=== PATIENT | female | born 1965 | race Caucasian/White ===

== ENCOUNTER 2020-04-22 03:03 | Emergency (ER) | payer MEDICARE, BC, SELFPAY ==
[2020-04-22 04:15] VITALS: BP 134/89; PULSE 12; RESP 19; TEMP 36.9; O2SAT 98; BMI 26.5
[2020-04-22 04:42] LABS: Glucose Urine UA NEG (NEG); Leukocyte Esterase Urine NEG (NEG); Nitrite Urine NEG (NEG); Specific Gravity - Urine >= 1.030 (1.005-1.025); Urine Blood NEG (NEG); Urine Ketones NEG (NEG); Urine Protein NEG (NEG-TRACE)
[2020-04-22 04:43] LABS: Appearance Urine CLEAR; Color Urine YELLOW
--- NOTE | 2020-04-22 04:53 | ED.ANXIETY ---
HPI - Anxiety General Chief Complaint: Anxiety Stated Complaint: CRISIS Time Seen by Provider: 04/22/20 04:30 Source: patient Mode of arrival: ambulatory Limitations: no limitations History of Present Illness HPI narrative: Patient comes emergency room complaining of anxiety/panic attack. Patient states she has been working with her psychiatrist to wean her off Klonopin. Patient has prescribed Klonopin at specific doses. Patient states that she may be going down too fast, thinks she may be withdrawing. However, patient states that she does not want any benzodiazepines. Patient states she has come for along with her progress and does not want to have a step back. [facility], patient looking for therapist for outpatient treatment. Patient denies suicidal ideation. 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 MD complaint: anxiety Related Data Allergies Allergy/AdvReac Type Severity Reaction Status Date / Time No Known Allergies Allergy Unverified 12/03/19 17:10 [No Known Allergies*] Review of Systems Review of Systems: Constitutional : No Weight loss, No Fever, No Chills, No Night Sweats, No Fatigue, No Malaise ENT/Mouth : No Hearing loss, No Ear Pain, No Nasal Congestion, No Sinus Pain, No Hoarseness, No sore throat, No Rhinorrhea, No Swallowing Difficulty Eyes: No Eye Pain, No Swelling, No Redness, No Foreign Body, No Discharge, No Vision Changes Cardiovascular : No Chest Pain, No SOB, No Dyspnea on Exertion, No Orthopnea, No Edema, No Palpitations Respiratory : No Cough, No Sputum, No Wheezing, No Smoke Exposure, No Dyspnea Gastrointestinal : No Nausea, No Vomiting, No Diarrhea, No Constipation, No abdominal Pain, No Hematochezia, No Melena Genitourinary : no irregular bleeding, No Dysuria, No Urinary Frequency, No Hematuria, No Urinary Incontinence, No Urgency, No Flank Pain, No Urinary Flow Changes, No Hesitancy Musculoskeletal : No joint pain, No Myalgias, No Joint Swelling Skin : No Skin Lesions, No rash Neuro : No Weakness, No Numbness, No Paresthesias, No Loss of Consciousness, No Dizziness, No Headache Psych : Complaining of anxiety and panic attack, No Depression, No SI/HI/AH/VH, No Social Issues, Heme/Lymph: No Bruising, No Bleeding,No Lymphadenopathy Endocrine : No Polyuria, No Polydipsia, No Temperature Intolerance [facility] Past Medical History Medical History (Updated 04/22/20 @ 04:57 by Libertad Brunson MD) Anxiety Benzodiazepine abuse Chronic post-traumatic stress disorder (PTSD) Samia-Danlos disease Social History Social History Advance Directives: No Advance Directives Information Provided: No Physical Exam Vital Signs: Vital Signs: Last Vital Signs Temp 98.4 F 04/22/20 04:15 Pulse 12 L 04/22/20 04:15 Resp 19 04/22/20 04:15 BP 134/89 04/22/20 04:15 Pulse Ox 98 04/22/20 04:15 Body Mass Index 26.5 Appearance: Alert. Oriented X3. Very anxious Eyes: Pupils equal, round and reactive to light. ENT: Pharynx normal. Neck: Normal inspection. Neck supple. No lymph nodes noted. No crepitus CVS: Normal heart rate and rhythm. Pulses normal. Normal S1 and S2 Respiratory: No respiratory distress. Breath sounds normal. No Wheezing. No rales Abdomen: Soft and nontender. No rigidity. No distention. good BS x4 Skin: Skin warm and dry. Normal skin color. Normal skin turgor. Extremities: No lower extremity edema. No lower extremity edema. No Lacerations. No Rash Neuro: Oriented X 3. No motor deficit. No sensory deficit. Moving all extermities. No slurred speech. Course Course Course Narrative: [facility] pending. I discussed with the patient that her scheduled dose of liquid Klonopin can be provided to her. Patient requesting not to give her any other benzodiazepines despite her level of anxiety Care team evaluated the patient, patient is taking couples therapy. However, patient has an appointment with a therapist this afternoon at noon. Patient was instructed by the care team to follow up with her primary care physician, they may help her to get couples therapy. Patient is not suicidal, not homicidal, agrees to be discharged and follow up with her scheduled appointments. MDM - Anxiety Lab Data Labs: Lab Results 04/22/20 04/22/20 Range/Units 04:35 04:35 Urine Color YELLOW Urine Appearance CLEAR Urine pH 6.0 (5.0-8.0) Ur Specific [place] >= 1.030 H (1.005-1.025) Urine Protein NEG (NEG-TRACE) MG/DL Urine Glucose (UA) NEG (NEG) MG/DL Urine Ketones NEG (NEG) MG/DL Urine Blood NEG (NEG) Urine Nitrite NEG (NEG) Ur Leukocyte Esterase NEG (NEG) Urine Opiates Screen Not Detected (Not Detect) Ur Barbiturates Screen Not Detected (Not Detect) Ur Phencyclidine Scrn Not Detected (Not Detect) Ur Amphetamines Screen Not Detected (Not Detect) U Benzodiazepines Scrn Not Detected (Not Detect) Urine Cocaine Screen Not Detected (Not Detect) U Marijuana (THC) Screen POSITIVE H (Not Detect) Discharge Plan Discharge Clinical Impression: Acute anxiety Patient Disposition: Home, Self-Care Instructions: Anxiety (ED) Additional Instructions: Please follow-up with your primary care physician tomorrow. If you have any worsening or new symptoms, please return to the emergency room or call 911
[2020-04-22 04:56] LABS: Amphetamine Screen Urine Not Detected (Not Detect); Barbiturates, Urine Not Detected (Not Detect); Benzodiazepines Screen Urine Not Detected (Not Detect); Cannabinoid Screen Urine POSITIVE (Not Detect); Cocaine Screen Urine Not Detected (Not Detect); Opiate Screen Urine Not Detected (Not Detect); Phencyclidine Screen Urine Not Detected (Not Detect)
--- NOTE | 2020-04-22 05:59 | PC.NURSE ---
Patient currently in her room resting, no distress reported at this time, alert and oriented x3, [facility] faxed/called/spoke with Isabella/confirmed receipt of referral, will continue to monitor the patient.
--- NOTE | 2020-04-22 06:53 | MHC.CARE ---
CARE Team consulted with Dr Brunson after speaking with patient. Sonya denies SI/HI and presents oriented in all spheres. She reported she has a appointment today at 12pm with her therapist for intake and already has a psychiatrist involved. She stated i am worried abut my relationship with my girlfriend and I am seeking help here for couples therapist. It was informed to her how she is able to get a couples therapist and she can follow up with this referral in the community. She is clear from the CARE team and able to return home.
== END 2020-04-22 07:24 | disposition home or self-care (01) ==
PROVIDERS: Emergency Provider Emergency Medicine; PCP Family Medicine
DX: F41.9 Anxiety disorder, unspecified (principal); F41.1 Generalized anxiety disorder; F43.0 Acute stress reaction; Z79.899 Other long term (current) drug therapy; Z20.822 Contact with and (suspected) exposure to COVID-19
CPT/HCPCS: 80307; 81003; 99283